=== PATIENT | male | born 1995 | race Caucasian/White ===

== ENCOUNTER 2017-11-12 21:13 | Emergency (ER) | payer OTHER ==
[~2017-11-12] VITALS: Ht 170.2 cm; Wt 54.4 kg
[2017-11-12] MEDS ORDERED: DOXYCYCLINE HY100 MG PO (22:29)
== END 2017-11-12 22:50 | disposition home or self-care (01) ==
LOC: ED 21:13
DX: S61.256A Open bite of right little finger without damage to nail, initial encounter (principal); W54.0XXA Bitten by dog, initial encounter; Z88.5 Allergy status to narcotic agent; Z88.0 Allergy status to penicillin
CPT/HCPCS: 90471; 90715; 99283

== ENCOUNTER 2018-05-11 13:51 | Emergency (ER) | payer OTHER ==
[~2018-05-11] VITALS: Ht 170.2 cm; Wt 54.0 kg
[~2018-05-11 13:51] MED LIST: DOXYCYCLINE HY100 MG PO
[2018-05-11] MEDS ORDERED: OMEPRAZOLE20 MG PO (14:13)
[2018-05-11] MEDS ORDERED: MECLIZINE HCL25 MG PO (17:38)
== END 2018-05-11 17:47 | disposition home or self-care (01) ==
LOC: ED 13:51
PROC: BT40ZZZ Ultrasonography of Bladder (ICD-10-PCS; principal; 2018-05-11)
DX: R42 Dizziness and giddiness (principal); R33.9 Retention of urine, unspecified; Z88.0 Allergy status to penicillin; Z88.5 Allergy status to narcotic agent; Z79.899 Other long term (current) drug therapy
CPT/HCPCS: 36415; 51798; 70450; 80053; 81001; 85025; 99284-25

== ENCOUNTER 2018-05-23 08:08 | Emergency (ER) | payer OTHER ==
[~2018-05-23] VITALS: Ht 170.2 cm; Wt 54.0 kg
[~2018-05-23 08:08] MED LIST changes: +MECLIZINE HCL25 MG PO; +OMEPRAZOLE20 MG PO
--- OUTSIDE RECORDS SUMMARY | 2018-05-23 08:12 | XMS ---
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 Fernando has no Care Guidelines for this patient. Jonathan VISIT COUNT (12 MO.) 3 [facility] TOTAL 3 NOTE: Visits indicate total known visits. ED/C VISIT TRACKING (12 MO.) 05/23/2018 08:09 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
[2018-05-23] MEDS ORDERED: VITAMIN B-121000 MC1 PO (08:18)
[2018-05-23] MEDS ORDERED: PAROXETINE HCL20 MG PO (08:19)
[2018-05-23] MEDS ORDERED: MIRAPEX1 MG PO (08:19)
== END 2018-05-23 09:55 | disposition home or self-care (01) ==
LOC: ED 08:08
DX: F41.9 Anxiety disorder, unspecified (principal); F32.9 Major depressive disorder, single episode, unspecified; R10.31 Right lower quadrant pain; R10.2 Pelvic and perineal pain; Z88.0 Allergy status to penicillin; Z88.5 Allergy status to narcotic agent; Z79.899 Other long term (current) drug therapy
CPT/HCPCS: 81001; 99284